=== PATIENT | male | born 2000 | race Caucasian/White ===

== ENCOUNTER 2024-11-22 17:21 | Inpatient (IN) | payer BC, OTHER ==
[~2024-11-22] VITALS: Ht 180.3 cm; Wt 57.3 kg
[~2024-11-22 17:21] MED LIST: AUGEMENTIN PO; MINOCIN PO; MOTR200T4 PO; [UNRECOGNIZED DRUG - REMARK]
[2024-11-22 17:57] LABS: HEMATOCRIT 43.1 % (42.0-52.0); HEMOGLOBIN 14.9 g/dl (13.5-17.5); MEAN CORPUSCULAR HEMOGLOBIN 29.3 pg (27.0-33.0); MEAN CORPUSCULAR HGB CONC 34.6 g/dl (32.0-36.5); MEAN CORPUSCULAR VOLUME 84.7 fl (80.0-96.0); PLATELET COUNT, AUTOMATED 256 10^3/uL (150-450); RED BLOOD COUNT 5.09 10^6/uL (4.30-6.10); WHITE BLOOD COUNT 8.8 10^3/uL (4.0-10.0)
[2024-11-22 18:16] LABS: AMPHETAMINES LEVEL URINE NEGATIVE (NEGATIVE); BARBITURATES URINE NEGATIVE (NEGATIVE)
[2024-11-22 18:17] LABS: BENZODIAZEPINES URINE NEGATIVE (NEGATIVE); COCAINE METABOLITE URINE NEGATIVE (NEGATIVE); METHADONE URINE NEGATIVE (NEGATIVE); OPIATES URINE NEGATIVE (NEGATIVE); PHENCYCLIDINE URINE NEGATIVE (NEGATIVE)
[2024-11-22 18:18] LABS: CANNABINOIDS URINE POSITIVE (NEGATIVE)
[2024-11-22 18:19] LABS: ETHYL ALCOHOL (ETHANOL) < 0.003 % (0.000-0.010)
[2024-11-22 18:21] LABS: ALBUMIN 4.8 G/DL (3.2-5.2); ALKALINE PHOSPHATASE 50 U/L (40-129); ALT/SGPT 22 U/L (7.0-40); AST/SGOT 10 U/L (<34); BILIRUBIN,DIRECT 0.4 MG/DL (<0.4); BILIRUBIN,TOTAL 1.1 MG/DL (0.3-1.2); BLOOD UREA NITROGEN 12 MG/DL (9-23); CALCIUM LEVEL 9.7 MG/DL (8.5-10.1); CARBON DIOXIDE LEVEL 28 MMOL/L (20-31); CHLORIDE LEVEL 104 MMOL/L (98-107); CREATININE FOR GFR 0.92 MG/DL (0.70-1.30); GLOMERULAR FILTRATION RATE > 90.0 (>60); GLUCOSE, FASTING 97 MG/DL (60-100); POTASSIUM SERUM 3.3 MMOL/L (3.5-5.1); SALICYLATE LEVEL < 3.0 MG/DL (<30); SODIUM LEVEL 143 MMOL/L (136-145); TOTAL PROTEIN 7.2 G/DL (5.7-8.2)
[2024-11-22 18:25] LABS: THYROID STIMULATING HORMONE 1.086 uIU/ML (0.55-4.78)
[2024-11-22] MEDS: ALPRAZolam 0.5 MG TAB PO ONE (20:34)
[2024-11-22] MEDS ORDERED: IBUP200T46 PO (21:37)
[2024-11-22] MEDS ORDERED: HOME MED LIST COMPLETE! XX SCH (21:40)
[2024-11-22] MEDS ORDERED: MOM 30ML SUSPENSION UDC PO PRN (23:00)
[2024-11-22] MEDS ORDERED: diphenhydrAMINE 25MG CAP PO PRN (23:00)
[2024-11-22] MEDS ORDERED: ACETAMINOPHEN 325 MG TAB PO PRN (23:00)
[2024-11-22] MEDS ORDERED: MAALOX 30 ML SUSP *UDC PO PRN (23:00)
[2024-11-22] MEDS ORDERED: IBUPROFEN 400MG TAB PO PRN (23:00)
[2024-11-23 00:01] VITALS: BP 142/86; TEMP 97.2; O2SAT 100
[2024-11-23 06:29] VITALS: BP 118/90; TEMP 97.6; O2SAT 96
[2024-11-23] MEDS: POTASSIUM CHLORIDE 10MEQ SR TABLET PO ONE (09:00)
[2024-11-23] MEDS: SERTRALINE HCL 25 MG TABLET PO SCH (09:00)
[2024-11-23 14:32] VITALS: BP 154/92; TEMP 97.9; O2SAT 98
[2024-11-23] MEDS: traZODone 50 MG TAB PO PRN (20:04)
[2024-11-24 14:57] VITALS: BP 134/88; TEMP 98.2; O2SAT 97
[2024-11-25 06:30] VITALS: BP 158/100; TEMP 98.1; O2SAT 97
[2024-11-25 06:47] VITALS: BP 130/93
[2024-11-25 07:24] VITALS: BP 139/89
[2024-11-25] MEDS: METOPROLOL TART 25 MG TABLET PO ONE (07:24)
[2024-11-25 16:11] VITALS: BP 148/90; TEMP 98.4; O2SAT 98
[2024-11-26 07:11] VITALS: BP 132/86; TEMP 97.8; O2SAT 99
[2024-11-26 15:55] VITALS: BP 140/90; TEMP 98.2; O2SAT 97
[2024-11-27 07:02] VITALS: BP 136/78; TEMP 97.6; O2SAT 97
[2024-11-27] MEDS: SERTRALINE HCL 50 MG TAB PO SCH (09:56)
[2024-11-27] MEDS: busPIRone 10 MG TAB PO SCH (10:45)
[2024-11-27 15:00] VITALS: BP 128/100; TEMP 98.3; O2SAT 99
[2024-11-27 17:29] VITALS: BP 128/100; TEMP 98.3; O2SAT 99
[2024-11-27 19:03] VITALS: BP 142/86
[2024-11-27] MEDS ORDERED: busPIRone 10 MG TAB PO SCH (21:00)
[2024-11-28 06:33] VITALS: BP 142/78; TEMP 97.7; O2SAT 98
[2024-11-28] MEDS ORDERED: SERT50TA29 PO (07:10)
[2024-11-28] MEDS ORDERED: ABIL1TAB11 PO (07:10)
[2024-11-28] MEDS ORDERED: BUSP10TA PO (07:10)
[2024-11-28] MEDS ORDERED: HYDR-4570 PO (07:10)
[2024-11-28] MEDS ORDERED: TRAZ-252 PO (07:10)
== END 2024-11-28 11:46 | disposition home or self-care (01) | DRG 880 ==
LOC: M ED 17:21 → M ED INP 22:58 → M PSY 23:37
PROVIDERS: ADMIT Psychiatry & Neurology Neurology; ATTEND Psychiatry & Neurology Neurology
DX: F41.1 Generalized anxiety disorder (principal); R45.851 Suicidal ideations; F41.0 Panic disorder [episodic paroxysmal anxiety]; F32.A Depression, unspecified; E87.6 Hypokalemia; Z81.8 Family history of other mental and behavioral disorders; Z88.1 Allergy status to other antibiotic agents; Z88.8 Allergy status to other drugs, medicaments and biological substances